=== PATIENT | female | born 1990 | race Caucasian/White ===

== ENCOUNTER → 2020-12-28 | Outpatient (CLI) | payer OTHER ==
--- NOTE | 2020-12-28 13:59 | US ---
EXAMINATION TYPE: US thyroid st tissue head/neck DATE OF EXAM: 12/28/2020 COMPARISON: NONE CLINICAL HISTORY: E04.2 R63.5. Thyroid nodules, weight gain, history of thyroid FNA GLAND SIZE: Right Lobe: 4.7 x 1.5 x 1.2 cm Overall Parenchyma: homogenous Left Lobe: 5.2 x 1.5 x 1.3 cm Overall Parenchyma: homogeneous Isthmus Thickness: 0.2 cm NODULES RIGHT: # of nodules measured on right: 0 LEFT: # of nodules measured on left: 2 1. 1.2 X 0.9 x 1.1 cm inferior pole solid or almost completely solid, hypoechoic nodule, which is w ider than tall, with smooth margins, without echogenic foci. Prior size: no previous 2. 0.7 X 1.4 x 1.0 cm inferior pole possibly one larger or 2 smaller cystic or almost completely cy stic, anechoic nodule, which is taller than wide, with smooth margins, without echogenic foci. Prior size: no previous ISTHMUS: # of nodules measured in the isthmus: 0 Bilateral neck scanned, no evidence of lymphadenopathy. IMPRESSION: Nonspecific thyroid nodules. The need to biopsy should be made on a clinical basis.
== END | disposition home or self-care (01) ==
LOC: RADUSWWP 13:28
PROVIDERS: ATTEND Family Medicine
DX: E04.2 Nontoxic multinodular goiter (principal); R63.5 Abnormal weight gain
CPT/HCPCS: 76536